=== PATIENT | female | born 1990 | race Caucasian/White ===

== ENCOUNTER 2020-06-06 16:27 | Emergency (ER) | payer OTHER ==
[~2020-06-06] VITALS: Ht 170.2 cm; Wt 56.7 kg
[2020-06-06] MEDS ORDERED: CEFTRIAXONE 1 G in IV DEXTROSE 5% 50 ML IV ONE (16:45)
[2020-06-06 16:47] LABS: *BILIRUBIN,URIN NEGATIVE (NEGATIVE); *BLOOD, URINE NEGATIVE (NEGATIVE); *COLOR,URINE YELLOW (YELLOW); *KETONES,URINE NEGATIVE (NEGATIVE); *UROBILINOGEN,URINE 0.2 E.U./dl (NORMAL); LEUKOCYTE ESTERASE ,URINE TRACE (NEGATIVE); NITRITE, URINE NEGATIVE (NEGATIVE); UGLUCOSE NEGATIVE (NEGATIVE)
[2020-06-06 16:49] LABS: *URINE HCG, QUAL NEGATIVE (NEGATIVE)
[2020-06-06 16:56] LABS: *CLARITY,URINE SLIGHTLY HAZY (CLEAR)
[2020-06-06 16:57] LABS: BACTERIA,URINE NONE SEEN /HPF (NONE SEEN); RBC,URINE 0-3 /HPF (0-3); SQUAMOUS EPITHELIAL CELL,UR FEW /HPF (NONE SEEN); YEAST,URINE FEW /HPF (NONE SEEN)
[2020-06-06] MEDS ORDERED: CEFTRIAXONE /D5W 50ML IVPB **ER PYXIS IV ONE (17:09)
[2020-06-06 17:16] LABS: CREATININE 0.9 mg/dL (0.6-1.3); POTASSIUM 3.8 mmol/L (3.5-5.1)
[2020-06-06] MEDS ORDERED: SWABABLE VALVE TRANSFER SET EA MC ONE (17:20)
[2020-06-06] MEDS ORDERED: IV NORMAL SALINE 250 ML IV ONE (17:20)
[2020-06-06] MEDS ORDERED: IOHEXOL 300MG/ML 100 ML INFUS..BTL ONE (17:20)
[2020-06-06 17:21] LABS: BASOPHILS # (AUTO) 0.1 K/uL (0.0-8.0); BASOPHILS % (AUTO) 0.5 % (0.0-2.0); EOSINOPHILS % (AUTO) 0.3 % (0.0-7.0); HEMATOCRIT 39.3 % (31.2-41.9); HEMOGLOBIN 13.2 g/dL (10.9-14.3); LYMPHOCYTES # (AUTO) 2.6 K/uL (20.0-40.0); MEAN CORPUSCULAR HEMOGLOBIN 30.8 uug (24.7-32.8); MEAN CORPUSCULAR HGB CONC 34 g/dL (32.3-35.6); MEAN CORPUSCULAR VOLUME 92.1 fL (75.5-95.3); MONOCYTES # (AUTO) 0.7 K/uL (2.0-10.0); MONOCYTES % (AUTO) 6.1 % (0.0-11.0); NEUTROPHILS # (AUTO) 8.8 K/uL (1.8-8.9); NEUTROPHILS % (AUTO) 72.1 % (38.5-71.5); PLATELET COUNT (AUTO) 331 K/uL (179-408); RED BLOOD CELL COUNT(AUTO) 4.27 MIL/uL (3.63-4.92); WHITE BLOOD COUNT (AUTO) 12.2 K/uL (3.8-11.8)
[2020-06-06] MEDS ORDERED: KETOROLAC TROMETHAMINE 15 MG INJ IVP ONE (18:00)
[2020-06-06] MEDS ORDERED: MORPHINE SULFATE 2 MG/1 ML DISP.SYRIN IV ONE (18:00)
[2020-06-06] MEDS ORDERED: KETOROLAC TROMETHAMINE 15 MG INJ ONE (18:04)
[2020-06-06] MEDS ORDERED: MORPHINE SULFATE 2 MG/1 ML DISP.SYRIN ONE ×2 (18:04→19:50)
--- NOTE | 2020-06-06 18:23 | NUR ---
madison from pt insurance called and got the clinical info, will call back with [phone]
[2020-06-06] MEDS ORDERED: IV NORMAL SALINE 1000 ML BAG IV ONE (18:30)
--- NOTE | 2020-06-06 18:45 | NUR ---
Per Susie pt to be admitted to [facility], will call w/ info.
--- NOTE | 2020-06-06 19:12 | NUR ---
Dr Lloyd from [facility] spoke to Dr Naranjo.
[2020-06-06] MEDS ORDERED: IV NS 1000 ML 1,000 ML IV ONE (19:30)
--- NOTE | 2020-06-06 19:30 | NUR ---
Isabel from [facility] called back to speak with Dr. Naranjo.
[2020-06-06] MEDS ORDERED: MORPHINE SULFATE 4 MG/1 ML DISP.SYRIN IV ONE ×2 (19:45→21:45)
[2020-06-06] MEDS ORDERED: MORPHINE SULFATE 4 MG/1 ML DISP.SYRIN ONE ×2 (19:50→21:41)
--- NOTE | 2020-06-06 20:01 | NUR ---
Spoke with Susie from [facility], no bed avalable yet at this time, covid results faxed to .
--- NOTE | 2020-06-06 21:20 | NUR ---
Called Susie again regarding bet, stated she will follow up with [facility] regarding a bed.
--- NOTE | 2020-06-06 22:25 | NUR ---
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
--- NOTE | 2020-06-06 22:25 | NUR ---
Bed assignment 304-b, report to [place] jacob.
--- NOTE | 2020-06-07 | NUR ---
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 Patient is alert and oriented, no respiratory distress noted. Test results provided. All belongings with patient.
[2020-06-08] MEDS ORDERED: LEVO750T46 PO (20:48)
== END 2020-06-07 00:04 | disposition short-term general hospital (02) ==
LOC: ER 16:31
DX: N12 Tubulo-interstitial nephritis, not specified as acute or chronic (principal); R00.0 Tachycardia, unspecified; F31.9 Bipolar disorder, unspecified; M79.7 Fibromyalgia; Z20.822 Contact with and (suspected) exposure to COVID-19
CPT/HCPCS: 36415; 74177; 80048; 81001; 83605; 84703; 85025; 87040 ×2; 87086; 87426; 96361; 96365; 96375; 96376; 99285; J0696; J1885; J2270 ×4; Q9967; A4663; J7030; J7050

== ENCOUNTER 2020-06-08 19:39 | Emergency (ER) | payer OTHER ==
[~2020-06-08] VITALS: Ht 167.6 cm; Wt 61.2 kg
--- NOTE | 2020-06-08 19:55 | NUR ---
Dr. Stallings at bedside for MSE
--- NOTE | 2020-06-08 20:05 | NUR ---
30 year old female presents to ED for second time in 3 days for Abd pain. She was previously seen for same issue - diagnosed with Pyelonephritis and transferred to [facility] due to Insurance . She did not like treatment at [facility] and left AMA. Patient is fully alert and orientaited. Gait steady. No SI/HI. Sinus Rhythm on the monitor. No reports of chest pain, palpitations, diaphoresis, or chills. No SOB, saturations >94%, no dyspnea. GI/: Reports of Hematuria. No N/V/D. Abdominal pain and lower back pain are patients chief complaints. Bowel sounds normal.
[2020-06-08 20:10] LABS: *BILIRUBIN,URIN NEGATIVE (NEGATIVE); *BLOOD, URINE NEGATIVE (NEGATIVE); *CLARITY,URINE CLOUDY (CLEAR); *COLOR,URINE Orange (YELLOW); *KETONES,URINE NEGATIVE (NEGATIVE); LEUKOCYTE ESTERASE ,URINE TRACE (NEGATIVE); NITRITE, URINE POSITIVE (NEGATIVE); PH,URINE 6.5 (5.0-8.0); UGLUCOSE NEGATIVE (NEGATIVE)
[2020-06-08 20:13] LABS: *URINE HCG, QUAL NEGATIVE (NEGATIVE)
[2020-06-08] MEDS ORDERED: HYDROMORPHONE 1 MG/1 ML DISP.SYRIN IM ONE (20:15)
[2020-06-08] MEDS ORDERED: ONDANSETRON 4 MG/2 ML VIAL IM ONE (20:15)
[2020-06-08 20:17] LABS: RBC,URINE 0-3 /HPF (0-3)
[2020-06-08] MEDS ORDERED: ONDANSETRON 4 MG/2 ML VIAL ONE (20:17)
[2020-06-08] MEDS ORDERED: HYDROMORPHONE 1 MG/1 ML DISP.SYRIN ONE (20:17)
[2020-06-08 20:18] LABS: BACTERIA,URINE MODERATE /HPF (NONE SEEN); SQUAMOUS EPITHELIAL CELL,UR MANY /HPF (NONE SEEN)
[2020-06-08] MEDS ORDERED: levoFLOXacin 750 MG/D5W 150 ML PIGGYBACK IV ONE (20:45)
[2020-06-08] MEDS ORDERED: IV NORMAL SALINE 1000 ML BAG IV ONE (20:45)
--- NOTE | 2020-06-08 20:45 | NUR ---
Patient is cleared for discharge. Pending completion of Levaquin IV (Given over 90mins) and Fluid Bolus.
[2020-06-08] MEDS ORDERED: LEVO750T46 PO (20:48)
[2020-06-08] MEDS ORDERED: levoFLOXacin 750MG/D5W 150 ML IV ONE (20:55)
[2020-06-08 22:44] VITALS: BP 115/72
--- NOTE | 2020-06-08 23:17 | NUR ---
Patient discharged to home in stable condition. Written and verbal after care instructions given. Patient verbalizes understanding of instructions. Stressed follow up or return to ER for worsening s/s. Belongings with patient. Instructed not to drive. Educated on all pertinent information regarding medications prescribed. VSS. Steady gait.
== END 2020-06-08 23:17 | disposition home or self-care (01) ==
LOC: ER 19:39
DX: N39.0 Urinary tract infection, site not specified (principal); F31.9 Bipolar disorder, unspecified; M79.7 Fibromyalgia
CPT/HCPCS: 84703; 87086; A4663; J1170; J1956; J2405; J7030

== ENCOUNTER 2023-11-21 14:15 | Emergency (ER) | payer OTHER ==
[~2023-11-21] VITALS: Ht 170.2 cm; Wt 58.1 kg
[~2023-11-21 14:15] MED LIST: CYCL10TA9 PO; LEVO750T46 PO
[2023-11-21] MEDS ORDERED: GABAPENTIN 300 MG CAPSULE ONE (15:00)
[2023-11-21] MEDS ORDERED: MAGNESIUM CITRATE 296 ML BOTTLE ONE (15:00)
[2023-11-21] MEDS ORDERED: ACETAMINOPHEN 500 MG TABLET ONE (15:01)
[2023-11-21 15:08] LABS: BASOPHILS % (AUTO) 0.5 % (0.0-2.0); EOSINOPHILS # (AUTO) 0.1 K/uL (0.0-0.7); EOSINOPHILS % (AUTO) 1.9 % (0.0-7.0); HEMATOCRIT 38.6 % (31.2-41.9); HEMOGLOBIN 12.9 g/dL (10.9-14.3); LYMPHOCYTES # (AUTO) 1.4 K/uL (0.8-4.8); LYMPHOCYTES % (AUTO) 24.4 % (20.5-51.5); MEAN CORPUSCULAR HEMOGLOBIN 29.2 uug (24.7-32.8); MEAN CORPUSCULAR HGB CONC 33 g/dL (32.3-35.6); MEAN CORPUSCULAR VOLUME 87.4 fL (75.5-95.3); MONOCYTES # (AUTO) 0.5 K/uL (0.1-1.30); MONOCYTES % (AUTO) 8.4 % (0.0-11.0); NEUTROPHILS # (AUTO) 3.7 K/uL (1.8-8.9); NEUTROPHILS % (AUTO) 64.8 % (38.5-71.5); PLATELET COUNT (AUTO) 255 K/uL (179-408); RED BLOOD CELL COUNT(AUTO) 4.41 MIL/uL (3.63-4.92); RED CELL DISTRIBUTION WIDTH 13.4 % (12.3-17.7); WHITE BLOOD COUNT (AUTO) 5.6 K/uL (3.8-11.8)
[2023-11-21] MEDS: IV NORMAL SALINE 1000 ML BAG IV ONE (15:08)
[2023-11-21] MEDS: GABAPENTIN 300 MG CAPSULE PO ONE (15:10)
[2023-11-21] MEDS: ACETAMINOPHEN 500 MG TABLET PO ONE (15:10)
[2023-11-21] MEDS: MAGNESIUM CITRATE 296 ML BOTTLE PO ONE (15:10)
[2023-11-21 15:15] LABS: CALCIUM 8.4 mg/dL (8.5-10.1); CREATININE 0.8 mg/dL (0.6-1.3)
[2023-11-21 15:20] LABS: ALBUMIN 3.9 g/dL (3.4-5.0); BILIRUBIN,TOTAL 1.2 mg/dL (0.2-1.0); TOTAL PROTEIN, SERUM 7.3 g/dL (6.4-8.2)
[2023-11-21 15:28] LABS: THYROID STIMULATING HORMONE 2.32 mIU/mL (0.358-3.740)
[2023-11-21] MEDS ORDERED: LACTULOSE 20 G/30 ML LIQUID UDC ONE (15:32)
[2023-11-21] MEDS: LACTULOSE 20 G/30 ML LIQUID UDC PO ONE (15:35)
[2023-11-21 16:12] LABS: *BILIRUBIN,URIN NEGATIVE (NEGATIVE); *BLOOD, URINE NEGATIVE (NEGATIVE); *CLARITY,URINE CLEAR (CLEAR); *COLOR,URINE YELLOW (YELLOW); *KETONES,URINE NEGATIVE (NEGATIVE); *PROTEIN,URINE NEGATIVE (NEGATIVE); *UROBILINOGEN,URINE 0.2 E.U./dl (NORMAL); LEUKOCYTE ESTERASE ,URINE NEGATIVE (NEGATIVE); NITRITE, URINE POSITIVE (NEGATIVE); PH,URINE 5.5 (5.0-8.0); UGLUCOSE NEGATIVE (NEGATIVE)
[2023-11-21 16:15] LABS: *URINE HCG, QUAL NEGATIVE (NEGATIVE)
[2023-11-21] MEDS ORDERED: BISACODYL 10 MG SUPP.RECT RC ONE (16:24)
[2023-11-21 16:25] LABS: BACTERIA,URINE MANY /HPF (NONE SEEN); RBC,URINE NONE SEEN /HPF (0-3); SQUAMOUS EPITHELIAL CELL,UR FEW /HPF (NONE SEEN); WBC,URINE 0-3 /HPF (0-3)
[2023-11-21] MEDS: BISACODYL 10 MG SUPP.RECT RC ONE (16:26)
[2023-11-21] MEDS ORDERED: METH150T PO (16:54)
[2023-11-21] MEDS ORDERED: LACT10SO58 PO (16:54)
[2023-11-21] MEDS: NICOTINE 14 MG/24HR PATCH TD ONE (17:02)
[2023-11-21 17:05] VITALS: BP 128/84; TEMP 98; O2SAT 97
== END 2023-11-21 17:11 | disposition home or self-care (01) ==
LOC: ER 14:16
DX: K59.00 Constipation, unspecified (principal); F31.9 Bipolar disorder, unspecified; F17.200 Nicotine dependence, unspecified, uncomplicated; Z79.899 Other long term (current) drug therapy
CPT/HCPCS: 99284; 96360; 80053; 81001; 84703; 80178; 84443; 85025; 36415; 74018; 87086; J7040; 70030-TC; A4606; A4663; A9150

== ENCOUNTER 2024-04-06 17:32 | Emergency (ER) | payer OTHER ==
[~2024-04-06] VITALS: Ht 170.2 cm; Wt 65.8 kg
[~2024-04-06 17:32] MED LIST changes: +LACT10SO58 PO; +METH150T PO
[2024-04-06 17:48] VITALS: O2SAT 100
== END 2024-04-06 19:30 | disposition left against medical advice (07) ==
LOC: ER 17:32
DX: R40.0 Somnolence (principal); F31.9 Bipolar disorder, unspecified; M79.7 Fibromyalgia; F17.200 Nicotine dependence, unspecified, uncomplicated
CPT/HCPCS: A4606; A4663